=== PATIENT | female | born 1985 | race Caucasian/White ===

== ENCOUNTER 2017-03-15 06:49 | Observation (INO) | payer MEDICARE, OTHER ==
[~2017-03-15] VITALS: Ht 160 cm; Wt 88.5 kg
[~2017-03-15 06:49] MED LIST: CALCIUM AMINO200 MG PO; DEPAKOTE500 MG; DEPAKOTE500 MG PO; FOLIC ACID1 MG PO; GABAPENTIN300 MG PO; KEPPRA1000 MG PO; KIDS VITAMIN400 UNIT PO; LAMOTRIGINE150 MG PO; LAMOTRIGINE25 MG PO; MULTI VITAMIN1 EACH PO; NAPROXEN500 MG PO; NORCO 5-325 TA1 EACH PO; ONFI20 MG PO; PERCOCET 5-3251 EACH PO; PHENOBARBITAL30 MG PO; PHENOBARBITAL64.8 MG PO; TIROSINT25 MCG PO; TROKENDI XR100 MG PO; VALIUM5 MG PO; VIMPAT200 MG PO; VITAMIN D1000 UNIT PO; ZONEGRAN100 MG PO
[2017-03-15] MEDS ORDERED: [UNRECOGNIZED DRUG - OTHER] (07:14)
--- NOTE | 2017-03-15 12:22 | NUR ---
LE 1145 CAREGIVER HAS MANY QUESTIONS. FINANCIAL CENTER MANAGER IN ROOM VISITING WITH PT'S CAREGIVER DEMIAN. 1215 C/O L LEG PAIN 03/28. NEW ORDERS RECEIVED FROM 1219 MORPHINE 2MG GIVEN IV. XRAY IN ROOM. 1223 XRAY LEFT ROOM. OXYGEN SATS 94% ON RA, P 119, R 21 AND BP 118/84. CAREGIVER AT BEDSIDE. PT RESTING. REU.
--- NOTE | 2017-03-15 13:05 | OR ---
[facility] [address] [place], [place] [address] Signed DATE OF PROCEDURE: 03/15/17 PREOPERATIVE DIAGNOSES Grade 2, borderline grade 3 open fracture dislocation right ankle. Closed fracture, right distal tibia. PROCEDURES Irrigation and closed reduction of the open fracture dislocation on the right, followed by skin closure with application of a splint on the left side we simply applied a splint. ANESTHESIA Sciatic block with a little additional local anesthesia. DETAIL OF PROCEDURE The patient was in the Day Surgery area. Because of her severe history of seizures and having had previous episodes were following anesthesia, she was intubated for a prolonged period of time, the anesthesia service was understandably reluctant to proceed with general anesthesia. They therefore performed a sciatic block in Day Surgery. After the sciatic block had been performed, we infiltrated the area around the medial wound on the right ankle with 1% plain Xylocaine. After this had a little time to set up, we irrigated the exposed bone with 25% Betadine solution and then the copiously with the saline. We then were able to effect a closed reduction on the ankle, although it is not particularly clear that we got a completely concentric closed reduction within the limited confines of the available anesthesia. However, by holding the ankle in some inversion, we were able to affect a primary wound closure with cecilia. She was then placed in a sterile dressing followed by a bulky dressing and a posterior splint with a U stirrup. She was left in Day Surgery at that time. MD ERIN Ellington/Prestonl /[id number] cc: Butch Hernández MD Electronically Signed By: MENG FARLEY MD 03/15/17 1305 PATIENT NAME: AUSTIN SAENZ OPERATIVE REPORT DATE OF : 85 PHYSICIAN: MENG FARLEY MD REPORT #: [id number] REPORT IS CONFIDENTIAL AND NOT TO BE RELEASED WITHOUT AUTHORIZATION
--- NOTE | 2017-03-15 13:05 | HP ---
[facility] [address] [place], [place] [address] Signed DATE OF ADMISSION: 03/15/17 HISTORY OF PRESENT ILLNESS Ms. 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 She apparently had a seizure this morning and simply fell to the ground. At this point, it was appreciated that she had an open fracture dislocation of her right ankle. She was examined and evaluated in the emergency room and orthopedic consultation was requested. Because of pain in the left ankle area, left ankle x-rays were also obtained, which show a distal tibial metaphyseal fracture. She did not appear to sustain any other injuries. PHYSICAL EXAMINATION GENERAL: On examination, she is alert and oriented, in really minimal distress. HEAD, EARS, EYES, NOSE, AND THROAT: Seem unremarkable. There is no evidence of craniofacial trauma. NECK: Supple. CHEST: Clear. HEART: Has a regular rhythm. ABDOMEN: Benign. EXTREMITIES: Examination of lower extremities reveals a marked swelling about the left knee, which apparently has been fractured numerous times before and has a numerous scars about it. Visually minimal deformity about the left ankle. The right leg reveals the tibial plafond to be sticking out through a medial wound. There is an intact pedal pulse. NEUROVASCULAR EXAM: Indicates she is unable to wiggle her toes, but she appreciates light touch in the tips of all of her toes. IMAGING STUDIES X-rays were obtained, which confirmed the clinical findings that she has a lateral ankle dislocation with fracture of the fibula. She also has a long oblique fracture of the tibial metaphysis down by the ankle on the left side. On the left side, her neurovascular examination is also unremarkable. DISCUSSION I had a discussion with her caregiver/cousin, who apparently is taking care of her for a long period of time. I explained that the left ankle could probably be treated in a splint, however, the right ankle will probably require open reduction, internal fixation. At the very least, the wound needs to be addressed and the bone needs to be recovered with an adequate soft tissue envelope. We reviewed all potential risks and complications associated with this proposed intervention including the significant risk of infection with an open fracture. They appeared agreeable and are comfortable with Electronically Signed By: MENG BURK MD 03/15/17 1305 PATIENT NAME: AUSTIN SAENZ HISTORY AND PHYSICAL DATE OF : 85 PHYSICIAN: MENG BURK MD REPORT #: [id number] REPORT IS CONFIDENTIAL AND NOT TO BE RELEASED WITHOUT AUTHORIZATION [facility] [address] [place] [id number] Signed proceeding as suggested. Meng Burk MD WFB/Modl /[id number] cc: Butch Hernández MD Electronically Signed By: MENG BURK MD 03/15/17 1305 PATIENT NAME: AUSTIN SAENZ HISTORY AND PHYSICAL DATE OF : 85 PHYSICIAN: MENG BURK MD REPORT #: [id number] REPORT IS CONFIDENTIAL AND NOT TO BE RELEASED WITHOUT AUTHORIZATION
--- NOTE | 2017-03-15 13:05 | NUR ---
CALL FROM [facility] TRANSFER CENTER WITH AN ACCEPTING DOCTOR. CONTINUE TO WAIT FOR BED SPACE. IN WITH DR FARLEY TO DISCUSS TRANSFER WITH PTS FAMILY AND WHAT THE HOLD UP IS. FAMILY IS EXTREMELY UPSET WITH ALL STAFF AND DOCTOR AT THIS TIME, DUE TO FEELING THOUGH THE SITUATION HAS NOT BEEN EXPLAINED TO THEM, AND AN APPARENT MISCOMMUNICATION IN THE WAY THAT A TRANSFER WORKS. THIS NURSE, DAY SURGERY NURSE DUSTIN, AND DR FARLEY ALL IN ROOM WITH FAMILY TO DISCUSS THE OPTIONS AT THIS TIME, EXPLAIN IN DETAIL WHAT HAS HAPPENED SO FAR AND WHAT WE CONTINUE TO WAIT FOR. FAMILY REMAINS EXTREMELY UPSET WITH STAFF STATING "GET US OUT OF THIS HOSPTIAL."
--- NOTE | 2017-03-15 14:14 | NUR ---
IN TO DISCUSS TRANSFER WIHT FAMILY. FAMILY STATES THAT DUE TO HER SEIZURE DISORDER, THEY FEEL PT WILL BE SAFER GOING WITH [facility]ATH[facility] THAN [facility]. CALL TO DR FARLEY TO DISCUSS THIS.
--- NOTE | 2017-03-15 14:27 | NUR ---
CALL FROM THE TRANSFER CENTER AT [facility] WITH BED ASSIGNMENT.
--- NOTE | 2017-03-15 14:32 | NUR ---
DISCUSSED WITH FAMILY TRANSFER OPTIONS. FAMILY OKAY WITH CALLING [facility] PRIOR TO CALLING [facility].
--- NOTE | 2017-03-15 14:34 | NUR ---
LE 1315 REPOSITIONED PT AND REMOVED EXTRA LINEN OUT FROM UNDER PT. C/O BILAT LEG PAIN 12/26. 1318 MORPHINE 2MG GIVEN IVP. DEMIAN AT BEDSIDE. 1345 PT RESTING. REU. OXYGEN SATS 96% ON RA, P 112, R 20. 1430 PT C/O R LEG PAIN 03/28. 1431 MORPHINE 2MG GIVEN IVP. C/O DRY MOUTH. LEMON SWABS GIVEN. CAREGIVER DEMIAN AT BEDSIDE.
--- NOTE | 2017-03-15 14:46 | NUR ---
[facility] CALLED FOR TRANSPORT OF PT. ACCEPTED AND WILL BE ENROUTE.
[2017-03-15] MEDS ORDERED: LEVETIRACETAM750 MG PO (15:06)
--- NOTE | 2017-03-15 16:48 | NUR ---
LE 1527 C/O R LEG PAIN 03/28. MORPHINE 2MG GIVEN IVP. FAMILY AT BEDSIDE. 1545 TRANSPORT ARRIVED. REPORT GIVEN TO CLINICAL PSYCHIATRIST CLAUDY NOLEN. PT LEFT VIA STRETCHER TO AMBULANCE. 1630 CALLED [facility] TO GIVE REPORT AND RN WILL CALL BACK WHEN RETURNS FROM LUNCH.
== END 2017-03-15 15:02 | disposition short-term general hospital (02) ==
LOC: ED 06:49 → MS 06:50
PROVIDERS: ADMIT Orthopaedic Surgery
PROC: 2W3RX1Z Immobilization of Left Lower Leg using Splint (ICD-10-PCS; 2017-03-15)
PROC: 0QSJXZZ Reposition Right Fibula, External Approach (ICD-10-PCS; principal; 2017-03-15 09:00)
DX: S82.841B Displaced bimalleolar fracture of right lower leg, initial encounter for open fracture type I or II (principal); S89.102A Unspecified physeal fracture of lower end of left tibia, initial encounter for closed fracture; W18.30XA Fall on same level, unspecified, initial encounter; Y92.002 Bathroom of unspecified non-institutional (private) residence as the place of occurrence of the external cause; G40.909 Epilepsy, unspecified, not intractable, without status epilepticus; E58 Dietary calcium deficiency; E03.9 Hypothyroidism, unspecified; Z88.8 Allergy status to other drugs, medicaments and biological substances; Z79.899 Other long term (current) drug therapy; F79 Unspecified intellectual disabilities
CPT/HCPCS: 51702; 64445; 73600; 73610; 76942; 80053; 81001; 85025; 85610; 90471; 90715; 96374; 96375; 96376; 99285; G0378; J0330; J1100; J1170; J1953; J2250; J2270; J2795; J3010

== ENCOUNTER 2020-11-14 10:10 | Emergency (ER) | payer MEDICARE, OTHER ==
[~2020-11-14] VITALS: Ht 160 cm; Wt 90.7 kg
[~2020-11-14 10:10] MED LIST changes: +LEVETIRACETAM750 MG PO; +[UNRECOGNIZED DRUG - OTHER]
[2020-11-14] MEDS ORDERED: ZITHROMAX250 MG PO (12:53)
--- NOTE | 2020-11-15 14:36 | EKG ---
[facility] [address] [facility] [place], [place] [address] Signed Normal sinus rhythm Minimal voltage criteria for LVH, may be normal variant ST \T\ T wave abnormality, consider anterior ischemia Abnormal ECG No previous ECGs available Confirmed by EFREN BOSCH DO ([id number]) on 11/15/2020 2:35:59 PM Electronically Signed By: EFREN BOSCH DO 11/15/20 1436 PATIENT NAME: LETTYAUSTIN DINORAH Electrocardiogram DATE OF : 85 PHYSICIAN: EFREN BOSCH DO REPORT #: [id number] REPORT IS CONFIDENTIAL AND NOT TO BE RELEASED WITHOUT AUTHORIZATION
== END 2020-11-14 13:16 | disposition home or self-care (01) ==
LOC: ED 10:10
DX: J20.9 Acute bronchitis, unspecified (principal); G40.909 Epilepsy, unspecified, not intractable, without status epilepticus; Z20.822 Contact with and (suspected) exposure to COVID-19; E03.9 Hypothyroidism, unspecified; Z88.8 Allergy status to other drugs, medicaments and biological substances; Z79.899 Other long term (current) drug therapy
CPT/HCPCS: 71045; 80053; 84484; 85025; 93005; 93010; 96374; 99285-25; C9803; J1885; J7040; U0003

== ENCOUNTER 2021-03-12 03:20 | Inpatient (IN) | payer MEDICARE, OTHER ==
[~2021-03-12] VITALS: Ht 160 cm; Wt 106.3 kg
[~2021-03-12 03:20] MED LIST changes: +ZITHROMAX250 MG PO
--- OUTSIDE RECORDS SUMMARY | 2021-03-12 03:24 | XMS ---
PreManage Notification: AUSTIN SAENZ Security Fisheries Manager Events No recent Security Events currently on file [facility] There are no care providers on record at this time. [facility] has no Care Guidelines for this patient. Aleshia VISIT COUNT (12 MO.) 2 FREDDY Gambino TOTAL 2 NOTE: Visits indicate total known visits. ED/UCC VISIT TRACKING (12 MO.) 03/12/2021 03:21 FREDDY Patel OR TYPE: Emergency COMPLAINT: - FEVER,LOW OXYGEN LEVELS 11/14/2020 10:11 FREDDY Patel OR TYPE: Emergency COMPLAINT: - DIFFICULTY BREATHING DIAGNOSES: - Cough - Epilepsy, unspecified, not intractable, without status epilepticus - Acute bronchitis, unspecified - Hypothyroidism, unspecified - Allergy status to other drugs, medicaments and biological substances - Other snf (current) drug therapy INPATIENT VISIT TRACKING (12 MO.) No inpatient visits to display in this time frame [email or web address]
--- NOTE | 2021-03-12 07:00 | NUR ---
THIS RN TRANSFERED pt FROM ED TO MED/SURG. pt TALKED THROUGHOUT TRANSFER. ABLE TO MOVE SELF FROM STRETCHER TO BED. SATS MID 90'S ON ROOM AIR AFTER EXERTION, MAINTAINED. CAREGIVER DEMIAN AT BEDSIDE. PROVIDED WARM BLANKETS, WATER, PILLOWS. OBTAINED HISTORY FROM CAREGIVER. pt CONTRIBUTED. TELE PLACED PER ORDERS WITH CONTINUOUS O2 SAT MONITORING. CALL LIGHT WITHIN REACH. pt RESTING IN BED ON ROOM AIR. REPORT TO JUSTINA ORTIZ.
--- NOTE | 2021-03-12 07:29 | NUR ---
RPEOT RECIEVED. PT JUST ADMITTED TO FLOOR. ON RA. TELE [address] SPO2 AT 93% HR 95. SLAT BASKET MAKER HELPER AT BEDSIDE.
--- NOTE | 2021-03-12 08:25 | NUR ---
IN FOR ASSESSMENT. PT DESATTING TO 87%. 1L NC PLACED. MEDICATIONS ADMINISTERED. ASSESSMENT COMPLETED. LUNGS DIM AND TIGHT IN BASE. HEART RATE REGULAR. 1+ EDEMA IN BILAT LE. PT IS W/C BOUND AT BASELINE. TELE [address] PT WITH COUGH AND SMALL AMOUNT OF DARBY SPUTUM. DENIES PAIN OR SOB.
[2021-03-12] MEDS ORDERED: DIVALPROEX SOD500 MG PO (10:53)
--- NOTE | 2021-03-12 11:27 | NUR ---
Patient via BSC, FWW w/ 2PA. Patient seems to have a lot of strength in her legs, but has a harder time standing up straight. Assisted with kamila-care and patient was very active in her care.
--- NOTE | 2021-03-12 11:30 | NUR ---
PT ASSISTED UP TO CHAIR FOR LUNCH. STAYING ON 1L NC. TOLERATED WELL. PT TRANSFERS 1-2 PERSON PIVOT. LEFT KNEE DOES NOT BEND OR EXTEND. CALL LIGHT IN REACH. DENIES SOB.
[2021-03-12] MEDS ORDERED: HYDROCODON-ACE1 EA11 PO (12:24)
--- NOTE | 2021-03-12 12:24 | NUR ---
MED REC COMPLETE
--- NOTE | 2021-03-12 14:00 | NUR ---
PT ASSISTED BACK TO BED. WILL TRY TO LAY PT ON RIGHT SIDE. 2 PERSON ASSISTED IN REPOSITIONING. PT REPORTS SHE CAN STAY LIKE THIS FOR A LITTLE TIME. CALL LIGHT IN REACH.
--- NOTE | 2021-03-12 15:00 | NUR ---
PT REPORTING PAIN IN RIGHT SHOLDER. REPOSITIONED TO BACK. 1L NC STILL IN PLACE, SPO2 AT 94%. CAREGIVER AT BEDSIDE. CALL LIGHT AND PERSONAL ITEMS WITHIN REACH.
--- NOTE | 2021-03-12 16:23 | NUR ---
I was able to visit with Crystal today who is Dai's cousin and full-time caregiver. Crystal reports that she is happy with the care Dai has received, she feels that the doctors have done a good job explaining the care plan, and anticipated care needs for recovery. She is also exceptionally happy with the care that Dolly has provided today on the medical floor. She states that she has no questions or concerns at this time with the exception for obtaining oxygen if needed upon discharge. I assured her that we would facilitate the oxygen delivery and set-up, should this be a need at the time of discharge. No further questions or concerns were expressed at this time.
--- NOTE | 2021-03-12 17:00 | NUR ---
PT ASSISTED TO BSC ONE PERSON. TOLERATED WELL. BACK TO BED FOR DINNER. DENIES NEEDS. CALL LIGHT IN REACH.
--- NOTE | 2021-03-12 19:34 | NUR ---
SHIFT REPORT RECEIVED FROM DIANA HORN. PT RESTING IN BED, CAREGIVER IN ROOM. SPO2 92% ON 1L NC. NO NEEDS AT THIS TIME. CALL LIGHT IN REACH.
--- NOTE | 2021-03-12 21:00 | NUR ---
in to get pt up to the bsc, pt had bm, no void, pt back to bed, vitals done, i&os, fresh ice water provided, pt laying in bed, left side, no further needs at this time
--- NOTE | 2021-03-12 21:08 | NUR ---
ASSESSMENT, VS AND I&O COMPLETED. GCS 15, A&O X4. CAREGIVER IN ROOM. LUNGS CLEAR BUT DIMINISHED IN ALL LOBES. SPO2 94% ON 1L NC. ABD OBESE, NONTENDER, BOWEL TONES ACTIVE. 1+ BLE EDEMA. WEAKNESS IN LEFT KNEE AND BOTH ANKLES, FWW. IV WNL, CDI, FLUSHED WELL. PT HAS THICK YELLOW/BROWN SCANT SPUTUM. NO OTHER NEEDS AT THIS TIME. CALL LIGHT IN REACH.
--- NOTE | 2021-03-12 22:10 | NUR ---
pt wants to lay on right side, assisted pt to roll over
--- NOTE | 2021-03-12 23:05 | NUR ---
PT RESTING IN RIGHT SIDE. SPO2 92% ON 1L NC. CAREGIVER IN ROOM. CALL LIGHT IN REACH.
--- NOTE | 2021-03-12 23:30 | NUR ---
in to assist pt to the bsc, heavy 1pa pivot, pt back to bed, remains on right side laying, pillow propped on back and hip, pt falling asleep as this u.s. commissioner tidyed rm, no further needs at this time
--- NOTE | 2021-03-13 00:28 | NUR ---
assisted pt to her right side, pillow under knee per request, pillow supporting pts backside, sips of water provided, no further needs at this time
--- NOTE | 2021-03-13 02:15 | NUR ---
in to get vitals, pt has temp, worked on i.s., rn aware, in to check pt, pt ready to turnover to left side, assisted pt, pillow fluffed under pts need, no further need
--- NOTE | 2021-03-13 02:33 | NUR ---
ASSESSMENT, VS AND I&O COMPLETED. LUNGS CLEAR AND DIM IN ALL LOBES. BLE EDEMA 1+. SCATTERED BRUISING AND ABRASIONS NOTED. IV SITE REINFORCED WITH KERLIX. PT ORAL TEMP 100.8f, TYLENOL PROVIDED AND I.S. USE OBSERVED. NO OTHER NEEDS AT THIS TIME. SHOES SALESPERSON PHIL IN ROOM TO PISITION PT.
--- NOTE | 2021-03-13 03:30 | NUR ---
PT CALLED, C/O FEVER FEELING LIKE IT RAISING, IN TO RECHECK TEMP, SOME BLANKETS REMOVED, PT USE OF I.S. COMPLETE, ICE WATER REFILLED, BOOSTED AND TURNED IN BED, REMAINS ON RIGHT SIDE, RN IN TO CHECK ON PT
--- NOTE | 2021-03-13 03:52 | NUR ---
PT FEELS SHE HAS A FEVER. TEMP TAKEN. ICE WATER PROVIDED, HEAVY BLANKETS REMOVED, I.S. PROVIDED. CAREGIVER STATES THAT THE PT TOLD HER THAT SHE DOES NOT WANT TO USE THE CALL LIGHT BECAUSE "SOMEONE GOT UPSET WITH HER FOR CALLING TOO MUCH". RN EXPLAINED THAT WE GAVE HER EDUCATION CONCERNING GROUPING CARES AND NEEDS AND THAT NO ONE WAS UPSET WITH HER. EDUCATION AGAIN PROVIDED TO PT CONCERNING GROUPING NEEDS AND CARES TO LIMIT COVID EXPOSURE. PT ALSO EDUCATED THAT NO ONE WAS UPSET WITH HER AND TO USE THE CALL LIGHT WHEN SHE NEEDS. COOL WASH CLOTH PROVIDED. NO OTHER NEEDS. CALL LIGHT IN REACH.
--- NOTE | 2021-03-13 05:00 | NUR ---
PT FEVER IS STILL ELEVATED AND HR HAS SUSTAINED NEAR 135 FOR ABOUT 15 MINUTES. VS TAKEN. RN WILL CALL .
--- NOTE | 2021-03-13 05:08 | NUR ---
SPOKE WITH MD FACE TO FACE CONCERNING PULSE ELEVATION AND FEVER. VERBAL ORDER GIVEN FOR ANECG, 20 MG METOPROLOL ORAL ONCE AND AND 400MG MOTRIN ORAL, ONCE. ORDER REPEATED BACK.
--- NOTE | 2021-03-13 05:51 | NUR ---
SCHEDULED MEDS PROVIDED. PT LAYING ON BACK WITH HOB ELEVATED. SPO2 92% ON 1L NC. NO OTHER NEEDS AT THIS TIME. CALL LIGHT IN REACH.
--- NOTE | 2021-03-13 06:45 | NUR ---
IN TO ASSIST PT TO THE BSC, PT VOIDED, BACK TO BED, PT REPORTED STOMACH PAIN, TEMP CHECKED PER PT REPORTING 'MY FEVER BROKE!', NO FURTHER NEEDS AT THIS TIME
--- NOTE | 2021-03-13 08:55 | NUR ---
Tylenol 650mg po admin for abd pain and temp 100.4f.
--- NOTE | 2021-03-13 10:04 | NUR ---
Geff 7.5/325mg po admin for back/stomach pain.
--- NOTE | 2021-03-13 10:04 | NUR ---
UPDATED ON PT LOW B/P, RN TO HOLD LOPRESSOR, SAID HOLD AM DOSE
--- NOTE | 2021-03-13 12:45 | NUR ---
Patient unable to void after sitting on commode for a while. Bladder scan done; 35ml noted. Dr. Rivera made aware. New verbal order to infuse LR bolus x1 at this time. Patient and her licensed nursing assistant report she only voids a couple times a day at home. Last void was 450 just prior to shift change. Vital signs are stable, afebrile. Patient sitting up in chair visiting with licensed nursing assistant. Antibiotics started per provider order. No needs. Call light within reach.
--- NOTE | 2021-03-13 15:41 | NUR ---
Dr. Rivera aware of most recent bladder scan result-135ml. Orders to continue to monitor patient.
--- NOTE | 2021-03-13 16:54 | NUR ---
Patient resting on side, respirations even and non labored. Patient has no notable distress. CPOX intact, sat level 96% on 1L per nc. Section 8 Property Manager at bedside.
--- NOTE | 2021-03-13 19:25 | NUR ---
SHIFT REPORT RECIEVED FROM ROSANGELA HORN. PT RESTING IN BED. SPO2 92% IN 1L NC. CAREGIVER IN ROOM. CALL LIGHT IN REACH.
--- NOTE | 2021-03-13 21:45 | NUR ---
ASSESSMENT, VS AND I&O COMPLETED. GCS 15, A&O X4. LUNGS CLEAR IN ALL LOBES. SPO2 94% ON 1L NC. HEART TONES REGULAR. ABD SOFT, NONTENDER, BOWEL TONE ACTIVE. PT REPORTS MILD NAUASEA, PRN ZOFRAN PROVIDED. CMS INTACT. IV WNL, CDI, FLUSHED WELL. 1+ BLE EDEMA. ICE WATER PROVIDED. CAREGIVER IN ROOM. PT REPORTS 5/0 GENERALIZED PAIN, PRN PAIN MED PROVIDED. NO OTHER , CALL LIGHT IN REACH.
--- NOTE | 2021-03-13 22:04 | EKG ---
[facility] [address] [facility] [place] [address] Signed Sinus tachycardia Cannot rule out Anterior infarct , age undetermined Abnormal ECG When compared with ECG of 14-NOV-2020 10:40, Minimal criteria for Anterior infarct are now present Confirmed by EFREN BOSCH DO ([id number]) on 03/13/2021 10:04:40 PM Electronically Signed By: EFREN BOSCH DO 03/13/21 2204 PATIENT NAME: AUSTIN SAENZ DINORAH Electrocardiogram DATE OF : 85 PHYSICIAN: EFREN BOSCH DO REPORT #: [id number] REPORT IS CONFIDENTIAL AND NOT TO BE RELEASED WITHOUT AUTHORIZATION
--- NOTE | 2021-03-13 23:00 | NUR ---
PT RESTING ON RIGHT SIDE IN BED. SPO2 93% ON 1L NC. CAREGIVER IN ROOM. CALL LIGHT IN REACH.
--- NOTE | 2021-03-14 00:39 | NUR ---
PT RESTING IN BED. SPO2 94% ON 1L NC. CALL LIGHT IN REACH.
--- NOTE | 2021-03-14 02:20 | NUR ---
PT RESTING IN BED. SPO2 94% ON 1L NC. CAREGIVER IN ROOM. CALL LIGHT IN REACH.
--- NOTE | 2021-03-14 04:05 | NUR ---
PT RESTING IN BED. SPO2 93% ON 1L NC. CALL LIGHT IN REACH.
--- NOTE | 2021-03-14 05:33 | NUR ---
ASSESSMENT, VS AND I&O. PT COUGHING UP THICK, YELLOW SPUTUM. TRIALED PT ON RA BUT DROPPED TO 87%, PLACED BACK ON 1L NC AND SPO2 ROBERT TO 92% QUICKLY. LUNGS CLEAR IN UPPER LOBES AND FINE CRACKLES IN LOWER LOBES. EDUCATION CONCERNING SIDE LYING AND PRONING PROVIDED. IV WNL. BLE EDEMA 1+. NO OTHER NEEDS AT THIS TIME. CALL LIGHT IN REACH.
--- NOTE | 2021-03-14 06:19 | NUR ---
PT CALLS TO BE REPOSITIONED, PROVIDED. NO OTHER NEEDS. CALL LIGHT IN REACH.
--- NOTE | 2021-03-14 07:55 | NUR ---
this rn received report from pasquale starr. pt appears to be resting at this time with caregiver in room
--- NOTE | 2021-03-14 09:10 | NUR ---
THIS RN IN PTS ROOM TO DO PTS ASSESSMENT AND GIVE MORNING MEDS. PT STATES THAT SHE IS HAVING PAIN THIS AM BUT DOING WELL OTHERWISE. THIS RN ROVIDED PT WTIH 1 NORCO AT THIS TIME. THIS RN AND PTS CAREGIVER REPOSITIONED PT SO SHE COULD SIT UP TO EAT PROPERLY. PT STATES THAT SHE HAS NO OTHER NEEDS AT THIS TIME
--- NOTE | 2021-03-14 10:37 | NUR ---
THIS RN IN PTS ROOM DUE TO PT DESATING TO 85% ON ROOM AIR. PT APPEARS TO BE RESTING. CAREGIVER ABLE TO PUT PT ON 1L NC, SATS BACK UP TO 93%
--- NOTE | 2021-03-14 15:30 | NUR ---
THIS RN IN PTS ROOM WITH YANI GAGE TO GET PT TO BEDSIDE COMODE. PT ABLE TO MAJORITY OF IT ON HER OWN, JUST REQUIRES ASSISTANCE WITH GETMIKA MODI UNDERWEAR DOWN, OTHERWISE PT IS SBA WITH SET UP. PT STATES THAT ALL SHE NEEDS IS HER SCHEDULED GABAPENTIN.
--- NOTE | 2021-03-14 16:03 | NUR ---
NURSE AND I HELPED PATIENT TO THE BED SIDE COMMODE. PATIENT DID VERY WELL.
--- NOTE | 2021-03-14 18:30 | NUR ---
PT UP SHOWER WITH CAREGIVER TO ASSIST AT THIS TIME.
--- NOTE | 2021-03-14 19:10 | NUR ---
SHIFT REPORT RECEIVED FROM DEVEN HORN. PT RESTING IN BED. CPOX 92% ON 1L NC. CAREGIVER IN ROOM. CALL LIGHT IN REACH.
--- NOTE | 2021-03-14 19:52 | NUR ---
AROUND 1830 CAREGIVER GAVE PATIENT A SHOWER. WE GAVE HER THE TOWELS AND WASH CLOTHS.
--- NOTE | 2021-03-14 21:00 | NUR ---
ASSESSMENT, VS AND I&O COMPLETED. GCS 15, A&O X4. SCHEDULED MEDS PROVIDED. PT REPORTS 9/10 GENERALIZED PAIN, PRN PAIN MED PROVIDED. LUNGS CLEAR IN ALL LOBES. ABD SOFT, NONTENDER, BOWLE TONES ACTIVE. CMS INTACT. TRACE BLE EDEMA. IV WNL, CDI, FLUSHED WELL. SPO2 93% ON 1 L NC. ICE WATER PROVIDED. CAREGIVER IN ROOM. NO OTHER NEEDS. CALL LIGHT IN REACH.
--- NOTE | 2021-03-15 | NUR ---
PT RESTING IN BED, SPO2 94% ON 1L NC. CAREGIVER IN ROOM. CALL LIGHT IN REACH.
--- NOTE | 2021-03-15 02:15 | NUR ---
PT RESTING IN BED, CPOX 93% ON 1L NC. CAREGIVER IN ROOM. CALL LIGHT IN REACH.
--- NOTE | 2021-03-15 07:40 | NUR ---
this rn received report from pasquale starr. pt appears to be resting with respirations noted and cpox working
--- NOTE | 2021-03-15 08:55 | NUR ---
THIS RN IN PTS ROOM TO GIVE PT HER MORNING MED. PT STATES THAT SHE HAS CHRONIC BACK PAIN 10/26. THIS RN PROVIDED PT WITH 1 NORCO THIS AM FOR PAIN. PT STATES THAT SHE NEEDS NOTHING FURTHER AND ALL QUESTIONS ARE ANSWERED TO THE BEST OF THIS RNS ABILITY
--- NOTE | 2021-03-15 10:58 | NUR ---
PT UP TO CHAIR AT THIS TIME BY CAREGIVER. PT ON ROOM AIR AND DOES DESAT OCCASIONALLY TO 88% ON ROOM AIR BUT CURRENLY 93%
--- NOTE | 2021-03-15 11:15 | NUR ---
Call light is in room. Vitals, I&Os are done. tumbling and rolling supervisor is in room.
--- NOTE | 2021-03-15 13:00 | NUR ---
SPOKE WITH PATIENT AND CAREGIVER REGARDING OXYGEN NEED AT HOME. THEY STATE THEY WOULD LIKE NORCO FIRST CHOICE. THE ONLY OTHER THING THEY WERE NEEDING AT HOME WAS A NEW MATTRESS FOR HER OLD[facility] HOSPITAL BED. DISCUSSED THAT THEY SHOULD GO THROUGH PCP FOR THIS. CAREGIVER STATES SHE WILL CALL THEM. NO OTHER CONCERNS AT THIS TIME.
[2021-03-15] MEDS ORDERED: DOXYCYCLINE HY100 MG PO (13:26)
[2021-03-15] MEDS ORDERED: DEXAMETHASONE6 MG PO (13:26)
[2021-03-15] MEDS ORDERED: PANTOPRAZOLE SO40 MG PO (13:26)
[2021-03-15] MEDS ORDERED: HYDROCODON-ACE1 EA11 PO (13:27)
--- NOTE | 2021-03-15 14:03 | NUR ---
RX, RT [facility] CL[facility]IC[facility] FAXED TO [facility]. CONFIRMATION RECEIVED AT 154PM. SPOKE WITH CAREGIVER AND PATIENT AGAIN. THEY STATED THE OXYGEN WAS DELIVERED ALREADY. AND THAT THEY SPOKE WITH PCP OFFICE ABOUT BED AND THEY ARE WORKING ON THIS WITH THEM.
--- NOTE | 2021-03-15 14:12 | NUR ---
Vitals, I&O is done. Patient is talking with pharmacist.
== END 2021-03-15 14:50 | disposition home or self-care (01) | DRG 177 ==
LOC: ED 03:20 → MS 03:22
PROVIDERS: ADMIT Student in an Organized Health Care Education/Training Program; ATTEND Student in an Organized Health Care Education/Training Program
PROC: 3E0333Z Introduction of Anti-inflammatory into Peripheral Vein, Percutaneous Approach (ICD-10-PCS; principal; 2021-03-12)
PROC: XW033E5 Introduction of Remdesivir Anti-infective into Peripheral Vein, Percutaneous Approach, New Technology Group 5 (ICD-10-PCS; 2021-03-12)
PROC: 8E0ZXY6 Isolation (ICD-10-PCS; 2021-03-12)
DX: U07.1 COVID-19 (principal); J96.01 Acute respiratory failure with hypoxia; J12.82 Pneumonia due to coronavirus disease 2019; J15.9 Unspecified bacterial pneumonia; G40.909 Epilepsy, unspecified, not intractable, without status epilepticus; D69.6 Thrombocytopenia, unspecified; Z88.8 Allergy status to other drugs, medicaments and biological substances; Z79.899 Other long term (current) drug therapy; E03.9 Hypothyroidism, unspecified; Z96.652 Presence of left artificial knee joint
CPT/HCPCS: 71045; 80053; 85007; 85025; 87070; 87205; 93005; 93010; 94667; 94668; 94760; 94761; A9270; J0696; J1100; J1650; J2405; J7050; J7070; J7121